=== PATIENT | male | born 1995 ===

== ENCOUNTER 2023-10-07 13:16 | Outpatient (CLI) | payer OTHER | END 2023-10-07 13:33 | disposition home or self-care (01) | LOC: MRI 13:16 | DX: M25.561 Pain in right knee (principal); Z13.1 Encounter for screening for diabetes mellitus; Z13.220 Encounter for screening for lipoid disorders; Z13.0 Encounter for screening for diseases of the blood and blood-forming organs and certain disorders involving the immune mechanism; Z13.29 Encounter for screening for other suspected endocrine disorder; Z12.11 Encounter for screening for malignant neoplasm of colon; Z11.9 Encounter for screening for infectious and parasitic diseases, unspecified; Z13.21 Encounter for screening for nutritional disorder; Z12.5 Encounter for screening for malignant neoplasm of prostate | CPT/HCPCS: 73718 ==